=== PATIENT | female | born 1990 | race Caucasian/White ===

== ENCOUNTER → 2017-12-03 14:37 | Outpatient (CLI) | payer MEDICAID, SELFPAY ==
[2017-12-03 16:49] LABS: Pregnancy, Serum, hCG Quali. NEGATIVE Negative (0-9 Nonpreg)
[2017-12-03 16:53] LABS: Follicle Stimulating Hormone 4.9 mIU/mL; Free T3 2.9 pg/mL (2.18-3.98); Luteinizing Hormone 10.5 mIU/mL; Prolactin 12.1 ng/mL; T4 Free Direct 0.98 ng/dL (0.76-1.46); Thyroid Stim Hormone (TSH) 1.24 uIU/mL (0.358-3.74)
[2017-12-03 17:58] LABS: Chlamydia Trachomatis by PCR Negative (Negative); Neisserai gonorrhoeae by PCR Negative (Negative); Probe Check PASS; Sample Adequacy Control PASS; Specimen Processing Control PASS
[2017-12-04 09:37] LABS: HIV - WCH Non-Reactive (Nonreactive)
[2017-12-05 13:09] LABS: HEPATITIS B SURFACE AG Negative (Negative)
[2017-12-05 13:11] LABS: Hep C Antibodies >11.0 s/co ratio (0.0-0.9)
[2017-12-06 03:48] LABS: Rapid Plasmin Reagin (RPR) NONREACTIVE (NONREACTIVE)
[2017-12-07 10:55] LABS: HPV Reflexed? NOT INDICATED
== END ==
PROVIDERS: Visit Provider Obstetrics & Gynecology
DX: Z11.3 Encounter for screening for infections with a predominantly sexual mode of transmission (principal); Z12.4 Encounter for screening for malignant neoplasm of cervix; N91.1 Secondary amenorrhea
CPT/HCPCS: 36415; 83001; 83002; 83036; 84146; 84439; 84443; 84481; 84703; 86592; 86703; 86803; 87340; 87491; 87591; 88175; G0145

== ENCOUNTER → 2017-12-18 14:54 | Outpatient (CLI) | payer MEDICAID, SELFPAY ==
[2017-12-18 16:13] LABS: AST(SGOT) 25 U/L (15-37); Alanine Aminotransfer ALT/SGPT 32 U/L (13-56); Alkaline Phosphatase 101 U/L (45-117); Bilirubin, Direct < 0.05 mg/dL (0.00-0.30); Globulin 4.7 g/dL (2.2-4.2); Protein, Total 8.7 g/dL (6.4-8.2)
[2017-12-21 03:07] LABS: HCV Quant. RNA PCR HCV Not Detected IU/mL (.)
== END ==
PROVIDERS: Visit Provider Obstetrics & Gynecology
DX: B18.2 Chronic viral hepatitis C (principal)
CPT/HCPCS: 36415; 80076; 87522

== ENCOUNTER → 2018-01-07 11:47 | Outpatient (CLI) | payer MEDICAID, SELFPAY ==
[2018-01-07 12:39] LABS: Pregnancy, Serum, hCG Quali. NEGATIVE Negative (0-9 Nonpreg)
== END ==
PROVIDERS: Visit Provider Obstetrics & Gynecology
DX: N91.2 Amenorrhea, unspecified (principal)
CPT/HCPCS: 36415; 84703

== ENCOUNTER → 2018-12-30 13:14 | Outpatient (CLI) | payer MEDICAID, SELFPAY ==
[2018-12-30 14:11] LABS: hCG Titer Quant., Serum < 1 mIU/mL (<9 non-preg)
== END ==
PROVIDERS: Referring Provider Obstetrics & Gynecology; Visit Provider Obstetrics & Gynecology
DX: N91.2 Amenorrhea, unspecified (principal)
CPT/HCPCS: 36415; 84702

== ENCOUNTER → 2019-04-17 16:06 | Outpatient (CLI) | payer MEDICAID, SELFPAY ==
[2019-04-17 18:33] LABS: Chlamydia Trachomatis by PCR Negative (Negative); Neisserai gonorrhoeae by PCR Negative (Negative)
[2019-04-17 18:34] LABS: Probe Check PASS; Sample Adequacy Control PASS; Specimen Processing Control PASS
[2019-05-06 17:30] LABS: HPV HC, High Risk Negative (Negative)
[2019-05-10 14:38] LABS: HPV Reflexed? YES, CHARGE PATIENT
== END ==
PROVIDERS: Visit Provider Obstetrics & Gynecology
DX: Z12.4 Encounter for screening for malignant neoplasm of cervix (principal); Z11.3 Encounter for screening for infections with a predominantly sexual mode of transmission
CPT/HCPCS: 87491; 87591; 87624; 88175; G0145

== ENCOUNTER → 2019-05-04 14:26 | Outpatient (CLI) | payer MEDICAID, SELFPAY ==
[2019-05-04 16:27] LABS: Absolute Lymphocyte Count 1.57 X10^3/ul (0.83-4.51); Absolute Neutrophil Count 2.8 X10^3/uL (2.0-7.7); Basophil# 0.01 X10^3/uL; Basophil% 0.2 % (0-1); Eosinophil# 0.07 X10^3/uL; Eosinophils% 1.4 % (0-5); Hematocrit 37.8 % (37-47); Hemoglobin 13.1 g/dl (12.0-15.0); Lymphocyte # 1.57 X10^3/ul (4.0); Mean Corp Hgb Conc 34.7 g/gl (32-36); Mean Corpuscular Hgb 29.1 pg (27.0-32.0); Mean Platelet Vol. 9.6 fl (6.2-12.0); Monocyte# 0.45 X10^3/uL; Monocyte% 9.2 % (0-10); Platelet Count 179 K/mm3 (150-450); RBC Distribution Width CV 12.4 % (11.6-14.6); RBC Distribution Width SD 37.5 fl (35.1-43.9); White Blood Count 4.9 K/mm3 (4.4-11.0)
[2019-05-04 16:28] LABS: POSITIVE COUNT NO; POSITIVE DIFFERENTIAL NO; POSITIVE MORPHOLOGY NO
[2019-05-04 17:06] LABS: Color, Urine Yellow (Yellow); Glucose, Dipstick Normal (Normal); Ketone-Dipstick Negative (Negative); Leukocyte Esterase-Dipstick 25 /ul (Negative); Nitrite-Dipstick Negative (Negative); Occult Blood-Urine Negative /ul (Negative); Protein-Dipstick Negative (Negative); Specific Gravity, Urine 1.015 (1.002-1.030); Urine Bilirubin Dipstick Negative (Negative); Urine Clarity Cloudy (Clear); Urine Urobilinogen Normal (Normal)
[2019-05-04 17:29] LABS: BUP Internal Control LINE = VALID (VALID); Buprenorphine Drug Screen Positive (<10 ng/mL)
[2019-05-04 17:34] LABS: Amphetamine Urine VISTA NEGATIVE (<1000 ng/mL); Barbiturate Urine VISTA NEGATIVE (< 200 ng/mL); Benzodiazepine Urine VISTA NEGATIVE (< 200 ng/mL); Cocaine Urine VISTA NEGATIVE (< 300 ng/mL); Ecstacy Urine VISTA NEGATIVE (< 500 ng/mL); Methadone Urine VISTA NEGATIVE (< 300 ng/mL); PCP Urine VISTA NEGATIVE (< 25 ng/mL); THC Urine VISTA POSITIVE (< 50 ng/mL); Vista UDS pH Range 7
[2019-05-05 10:54] LABS: HIV - WCH Non-Reactive (Nonreactive); Hepatitis B Surface Antigen Non-Reactive (Nonreactive); Rubella IgG 14.7 IU/mL
[2019-05-05 10:57] LABS: Hepatitis C Antibody Reactive (Nonreactive)
[2019-05-08 02:57] LABS: Prenatal RPR NONREACTIVE (NONREACTIVE)
[2019-05-09 00:12] LABS: HCV Quant. RNA PCR HCV Not Detected IU/mL (.)
== END ==
PROVIDERS: PCP Obstetrics & Gynecology; Visit Provider Obstetrics & Gynecology
DX: Z34.81 Encounter for supervision of other normal pregnancy, first trimester (principal)
CPT/HCPCS: 36415; 80307; 81002; 84443; 85025; 86703; 86762; 86803; 87340; 87522

== ENCOUNTER → 2019-09-02 13:42 | Outpatient (CLI) | payer MEDICAID, SELFPAY ==
[2019-09-02 16:10] LABS: Hematocrit 33.8 % (37-47); Hemoglobin 11.6 g/dL (12.0-15.0); Mean Corp Hgb Conc 34.3 g/dL (32-36); Mean Corpuscular Hgb 30.9 pg (27.0-32.0); Mean Corpuscular Volume 89.9 fL (81-99); Mean Platelet Vol. 9.2 fl (6.2-12.0); Platelet Count 172 K/mm3 (150-450); RBC Distribution Width CV 12.1 % (11.6-14.6); RBC Distribution Width SD 39.6 fl (35.1-43.9); Red Blood Count 3.76 M/mm3 (4.2-5.4); White Blood Count 6.8 K/mm3 (4.4-11.0)
[2019-09-02 16:20] LABS: Glucose Challenge Gest 1H 50g 72 mg/dL (70-140)
== END ==
LOC: LABSPEC 13:43 → WOBLAB 13:45
PROVIDERS: Visit Provider Advanced Practice Midwife
DX: Z34.82 Encounter for supervision of other normal pregnancy, second trimester (principal)
CPT/HCPCS: 36415; 82950; 85027

== ENCOUNTER → 2019-09-21 15:04 | Outpatient (CLI) | payer MEDICAID, SELFPAY ==
[2019-09-23 20:07] LABS: HCV Quant. RNA PCR HCV Not Detected IU/mL (.)
== END ==
PROVIDERS: Visit Provider Obstetrics & Gynecology
DX: O98.413 Viral hepatitis complicating pregnancy, third trimester (principal); B18.2 Chronic viral hepatitis C; Z3A.00 Weeks of gestation of pregnancy not specified
CPT/HCPCS: 36415; 87522

== ENCOUNTER → 2019-11-05 15:57 | Outpatient (CLI) | payer MEDICAID, SELFPAY | PROVIDERS: Visit Provider Obstetrics & Gynecology | DX: Z36.85 Encounter for antenatal screening for Streptococcus B (principal) | CPT/HCPCS: 87081 ==

== ENCOUNTER 2019-11-26 22:00 | Outpatient (CLI) | payer MEDICAID, SELFPAY ==
[2019-11-26 23:00] VITALS: BMI 24.9
--- NOTE | 2019-11-27 09:05 | OB.TRI.HP_ITS ---
- Problem List (1) Irregular contractions Status: Acute History of Present Illness Date of Service: 11/26/19 Was patient seen by the physician?: No Reason For Visit: RULE OUT LABOR Date of Service: 11/26/19 Final ARVIND: 11/29/19 Final ARVIND Source: US <20 weeks Gestational age: 39 Weeks and 5 Days Allergies No Known Allergies Allergy (Verified 11/26/19 23:00) Review of Systems Constitutional: Denies: Chills, Fever, Weight Change HEENT: Denies: Head Aches, Sinus Congestion, Sinus Drainage Cardiovascular: Denies: Chest Pain, Palpitations Respiratory: Denies: Cough, Shortness of breath at rest, Sputum production Gastrointestinal: Reports: Abdominal Pain - irregular contractions. Denies: Nausea, Vomiting Genitourinary: Denies: Dysuria Musculoskeletal: Denies: Joint Pain, Joint Tenderness Skin: Denies: Rash, Wounds Neurological: Denies: Numbness, Tingling, Focal weakness Psychiatric: Denies: Anxiety, Depression, Homicidal Ideations, Suicidal Ideations Hematologic/ Lymphatic: Denies: Easy Bruising, Easy Bleeding Physical Exam General: Alert, Oriented x3, No apparent distress HEENT: Atraumatic, Normocephalic. Negative for: Thyromegaly, Lymphadenopathy Cardiovascular: Regular rate, Regular Rhythm Lungs: Clear to auscultation Abdomen: Bowel Sounds Present, Gravid Neurological: Deep Tendon Reflexes 2+/4 and Symmetrical, Neuro grossly intact NURSERY MANAGER: Normal external genitalia. Negative for: Vulvar lesions Estimated gestational size: Appropriate for gestational size Presentation: Cephalic Cervix Dilation (cm): 1 - per RN Station: -3 Effacement (%): 25 NST - FHR Rate Baby A Baseline: 125 Variability:: Moderate Accelerations:: 15 x 15 Decelerations:: None NST Reactive:: Yes FHR Category:: Category I Uterine Activity:: 2-4 minutes on admission for 20 minutes, then quiet Impression/Plan A: SVE unchanged after 2 hours UC stopped after arrival to unit NST category I tracing P: Discharge home to await onset of labor Education to rest and hydrate. To call when UC are Q5 minutes apart for at least one hour
== END 2019-11-27 01:00 | disposition home or self-care (01) ==
LOC: WPOUT 22:38 → WP 22:40
PROVIDERS: Visit Provider Obstetrics & Gynecology
DX: O26.893 Other specified pregnancy related conditions, third trimester (principal); N85.8 Other specified noninflammatory disorders of uterus; Z3A.39 39 weeks gestation of pregnancy
CPT/HCPCS: 59025; 59050; 99218; G0378

== ENCOUNTER 2019-12-01 14:10 | Inpatient (IN) | payer MEDICAID, SELFPAY ==
[2019-12-01 14:22] VITALS: BMI 26.7
[2019-12-01] MEDS: Lactated Ringers 1,000 ML 50 ML IV (14:35)
[2019-12-01 15:06] LABS: Absolute Lymphocyte Count 1.64 X10^3/uL (0.83-4.51); Absolute Neutrophil Count 5.2 X10^3/uL (2.0-7.7); Basophil# 0.03 X10^3/uL; Basophil% 0.4 % (0-1); Eosinophils% 1.3 % (0-5); Hematocrit 34.1 % (37-47); Hemoglobin 11.5 g/dL (12.0-15.0); Lymphocyte # 1.64 X10^3/ul (4.0); Lymphocyte % 21.3 % (19-41); Mean Corp Hgb Conc 33.7 g/dL (32-36); Mean Corpuscular Hgb 29.4 pg (27.0-32.0); Mean Corpuscular Volume 87.2 fL (81-99); Mean Platelet Vol. 9.4 fl (6.2-12.0); Monocyte# 0.61 X10^3/uL; Monocyte% 7.9 % (0-10); NRBC Flagged by Analyzer 0 % (0-5); Neutrophil # 5.24 X10^3/uL (2.7-7.7); Neutrophil % 68.2 % (47-70); Platelet Count 182 K/mm3 (150-450); RBC Distribution Width CV 11.9 % (11.6-14.6); RBC Distribution Width SD 38.1 fl (35.1-43.9); Red Blood Count 3.91 M/mm3 (4.2-5.4); White Blood Count 7.7 K/mm3 (4.4-11.0)
[2019-12-01] MEDS: Oxytocin 30 units/NS 500 ml 30 UNITS/500 ML IV.SOLN IV (15:51)
[2019-12-01] MEDS: Lactated Ringers 500 ML 999 ML IV ×2 (16:48→18:49)
[2019-12-01 17:09] LABS: Amphetamine Urine VISTA NEGATIVE (<1000 ng/mL); Barbiturate Urine VISTA NEGATIVE (< 200 ng/mL); Benzodiazepine Urine VISTA NEGATIVE (< 200 ng/mL); Cocaine Urine VISTA NEGATIVE (< 300 ng/mL); Ecstacy Urine VISTA NEGATIVE (< 500 ng/mL); Methadone Urine VISTA NEGATIVE (< 300 ng/mL); PCP Urine VISTA NEGATIVE (< 25 ng/mL); THC Urine VISTA NEGATIVE (< 50 ng/mL); Vista UDS pH Range 6
[2019-12-01] MEDS: fentaNYL-bupivacaine (epidural) 100 ML BAG EPIDURAL ×2 (18:05→22:26)
--- NOTE | 2019-12-01 19:13 | PCM.HP.OB ---
- Problem List (1) 40 weeks gestation of Status: Acute (2) Elective induction of labor planned Status: Acute History Date of Admission: 12/01/19 Final ARVIND: 11/29/19 Final ARVIND Source: US <20 weeks Gestational age: 40 Weeks and 2 Days History of this : This is a 29 year-old, G [], P [], at 40 weeks gestational age. Allergies No Known Allergies Allergy (Verified 12/01/19 14:23) Home Medications: Home Medications Buprenorphine HCl/Naloxone HCl [Suboxone 4 mg-1 mg Sl Film] 1 ea SL 11/26/19 Ondansetron HCl [Zofran] 4 mg PO 11/26/19 Vits [Prenatabs FA] 1 tab PO DAILY 12/01/19 Smoking Status: Light Smoker (<10/day) Number of Fetus(es): 1 NST - FHR Rate Baby A Baseline: 140 Variability:: Moderate Accelerations:: 15 x 15 Decelerations:: None NST Reactive:: Yes FHR Category:: Category I Uterine Activity:: Q 2-4 minutes History Past Pregnancies: Past Pregnancies Delivery Date Name GA/ Weeks Outcome Route Wt Sex Labor Length Anesthesia Delivery Location Provider FOB Labs: Mom's Labs & Results 12/01/19 12/01/19 12/01/19 14:35 14:35 15:30 WBC 7.7 RBC 3.91 L Hgb 11.5 L Hct 34.1 L MCV 87.2 MCH 29.4 MCHC 33.7 RDW Std Deviation 38.1 RDW Coeff of Gabby 11.9 Plt Count 182 MPV 9.4 Immature Gran % (Auto) 0.900 Neut % (Auto) 68.2 Lymph % (Auto) 21.3 [place] % (Auto) 7.9 Eos % (Auto) 1.3 Baso % (Auto) 0.4 Absolute Neuts (auto) 5.2 Absolute Lymphs (auto) 1.64 Nucleated RBC % 0 Urine Opiates Screen NEGATIVE Urine Methadone Screen NEGATIVE Ur Barbiturates Screen NEGATIVE Ur Phencyclidine Scrn NEGATIVE Ur Amphetamines Screen NEGATIVE U Methamphetamin-MDMA NEGATIVE U Benzodiazepines Scrn NEGATIVE Urine Cocaine Screen NEGATIVE U Cannabinoids Screen NEGATIVE Ur Drug Screen Comment Blood Type A POSITIVE Antibody Screen NEGATIVE Course Did the patient receive Yes care? Labs Blood Type: A RH: POSITIVE RPR/VDRL/Syphilis Nonreactive Rubella status Immune HbSAg Negative Date Done: 05/04/19 Chlamydia Negative Gonorrhea Negative HIV/AIDS Non-Reactive Group B Strep: Negative Current Obstetrical History Gestational Diabetes No Incompetent Cervix No Infertility No IUGR No Macrosomia No Hypertension/Pre-eclampsia No Placenta Previa/Abruption No PTL/PROM No Uterine anomaly No Oligohydramnios No Polyhydramnios No Multiple gestation No Past Medical History Asthma No Diabetes No Hypertension No Heart disease No Mitral valve prolapse No Neurologic/Seizure disorder/ No Migraines Kidney disease No Liver disease No Varicosities No Clotting disorders/Hx of DVT No Thyroid Dysfunction No Other medical diseases No Psychiatric disorders No Major trauma No Abnormal PAP smear No Sleep apnea No Mammogram in the last 2 years No Social History Marital Status: SINGLE Alleged father Rakan Smoking Status Light Smoker (<10/day) How long have you used pt on subutex since less than a year but substances (years)? throughout the entire . pt using CBD oil first two months of for nausea. Expected Delivery Method: Spontaneous Vaginal Number of Visits: 13 Review of Systems Constitutional: Denies: Chills, Fever, Weight Change HEENT: Denies: Head Aches, Sinus Congestion, Sinus Drainage Cardiovascular: Denies: Chest Pain, Palpitations Respiratory: Denies: Cough, Shortness of breath at rest, Sputum production Gastrointestinal: Denies: Abdominal Pain, Nausea, Vomiting Genitourinary: Denies: Dysuria Musculoskeletal: Denies: Joint Pain, Joint Tenderness Skin: Denies: Rash, Wounds Neurological: Denies: Numbness, Tingling, Focal weakness Psychiatric: Denies: Anxiety, Depression, Homicidal Ideations, Suicidal Ideations Hematologic/ Lymphatic: Denies: Easy Bruising, Easy Bleeding Physical Exam General: Alert, Oriented x3, No apparent distress HEENT: Atraumatic, Normocephalic. Negative for: Thyromegaly, Lymphadenopathy Cardiovascular: Regular rate, Regular Rhythm Lungs: Clear to auscultation Abdomen: Bowel Sounds Present, Gravid Neurological: Deep Tendon Reflexes 2+/4 and Symmetrical, Neuro grossly intact CASTING OPERATOR: Normal external genitalia. Negative for: Vulvar lesions Estimated gestational size: Appropriate for gestational size Presentation: Cephalic Cervix Dilation (cm): 2 Station: -2 Effacement (%): 50 Assessment/Plan All Active Problems Irregular contractions (Acute) 40 weeks gestation of (Acute) Elective induction of labor planned (Acute) A: This is a 29 year-old, G [3], P [1], at 40 weeks gestational age. Elective induction of labor SVE /-[id number] with meconium stained fluid Pitocin at [address]u [address] P: Continue with Pitocin induction SVE Q6H or as needed Education on meconium stained fluid and need for marketing program coordinator, nurse and respiratory at delivery
[2019-12-01] MEDS: Ondansetron 4 MG/2 ML Vial IV (21:37)
[2019-12-01] MEDS: 0.9% Saline Lock 10 ML Syringe IV (21:37)
[2019-12-01] MEDS: Lactated Ringers 1,000 ML 200 ML IV (22:26)
[2019-12-02] MEDS: fentaNYL-bupivacaine (epidural) 100 ML BAG EPIDURAL ×2 (02:45→07:36)
[2019-12-02] MEDS: Lactated Ringers 1,000 ML 200 ML IV (03:56)
[2019-12-02] MEDS: Lactated Ringers 500 ML 999 ML IV (05:15)
--- NOTE | 2019-12-02 07:26 | PCM.PN.OB ---
Patient Problems: Active and Suspected Problems 40 weeks gestation of (Acute) Elective induction of labor planned (Acute) Subjective: Currently sleeping. Report from RN, patient feeling well with epidural and pain 0/10. Objective: VSS. RN SVE 6/80/-1 at 0607. FHR baseline 135, +accels, -decels, moderate variability. UC 2-4 min. - Physical Exam Vitals/I&O's: Weight: 70.7 kg Body Mass Index (BMI) 26.7 Intake and Output for Last 24 Hours 11/30/19 12/01/19 12/02/19 23:59 23:59 23:59 Intake Total 2101.93 / 2101.93 1845.40 / 1845.40 Output Total 400 / 400 700 / 700 Balance 1701.93 / 1701.93 1145.40 / 1145.40 General: Alert, Oriented x3, Cooperative HEENT: Atraumatic, PERRLA, EOMI, Normocephalic Neck: Supple, No JVD, Negative Carotid Bruits Lungs: Clear to auscultation, Normal air movement Cardiovascular: Regular rate, No murmurs Abdomen: Bowel Sounds Present, Soft, Non Tender, Gravid Extremities: No edema, Capillary Refill Less than 3 Seconds Skin: No rashes, No breakdown Musculoskeletal: No Tenderness to Palpation of Joints or Extremities Neurological: Cranial nerves II-XII grossly intact Psych/Mental Status: Normal Affect, Appropriate Laboratory Results 12/01/19 14:35: WBC 7.7, RBC 3.91 L, Hgb 11.5 L, Hct 34.1 L, MCV 87.2, MCH 29.4, MCHC 33.7, RDW Std Deviation 38.1, RDW Coeff of Gabby 11.9, Plt Count 182, MPV 9.4, Immature Gran % (Auto) 0.900, Neut % (Auto) 68.2, Lymph % (Auto) 21.3, [place] % (Auto) 7.9, Eos % (Auto) 1.3, Baso % (Auto) 0.4, Absolute Neuts (auto) 5.2, Absolute Lymphs (auto) 1.64, Nucleated RBC % 0 12/01/19 14:35: Blood Type A POSITIVE, Antibody Screen NEGATIVE 12/01/19 15:30: Urine Opiates Screen NEGATIVE, Urine Methadone Screen NEGATIVE, Ur Barbiturates Screen NEGATIVE, Ur Phencyclidine Scrn NEGATIVE, Ur Amphetamines Screen NEGATIVE, U Methamphetamin-MDMA NEGATIVE, U Benzodiazepines Scrn NEGATIVE, Urine Cocaine Screen NEGATIVE, U Cannabinoids Screen NEGATIVE, Ur Drug Screen Comment Current Medications Acetaminophen (Tylenol) 325 - 650 mg PO Q4H PRN PRN PRN Reason: Pain Score 1-3/10 Al Hydroxide/Mg Hydroxide (Mylanta Ii) 15 - 30 ml PO Q4H PRN PRN PRN Reason: INDIGESTION Citric Acid/Sodium Citrate (Bicitra) 30 ml PO X1 PRN PRN Reason: Section Ephedrine Sulfate () 10 mg IV Q10M PRN PRN Reason: hypotension Ephedrine Sulfate () 10 mg IM Q30M PRN PRN Reason: hypotension Fentanyl Citrate (Sublimaze (100mcg Ampule)) 25 - 50 mcg IV Q2H PRN PRN PRN Reason: Pain Score 4-10/10 Fentanyl/Bupivacaine/Sodium Chlor () 0 ml EPIDURAL UD [facility]; Protocol Last Admin: 12/02/19 02:45 Dose: 100 ml Documented by: Lactated Ringer's () 500 mls @ 999 mls/hr IV .Q31M PRN PRN Reason: Epidural Last Infusion: 12/01/19 17:20 Dose: Infused Documented by: Lactated Ringer's () 500 mls @ 999 mls/hr IV .Q31M PRN PRN Reason: Corrective Measures Last Infusion: 12/02/19 05:46 Dose: Infused Documented by: Lactated Ringer's () 1,000 mls @ 50 mls/hr IV .Q20H [facility] Last Infusion: 12/02/19 05:46 Dose: 200 mls/hr Documented by: Oxytocin/Sodium Chloride () 30 units in 500 mls @ 2 mls/hr IV .Q250H [facility] Last Infusion: 12/02/19 00:50 Dose: 6 mls/hr Documented by: Naloxone HCl 4 mg/ Dextrose 504 mls @ 0 mls/hr IV .Q0M PRN; Protocol PRN Reason: To maintain Resp. rate >10 Nalbuphine HCl (Nubain) 5 mg IV Q3H PRN PRN PRN Reason: ITCHING Naloxone HCl (Narcan) 0.02 mg IV Q1M PRN PRN Reason: RR< 10 AND PT UNRESPONSIVE Ondansetron HCl (Zofran) 4 mg IV Q4H PRN PRN PRN Reason: NAUSEA Last Admin: 12/01/19 21:37 Dose: 4 mg Documented by: Prochlorperazine Edisylate (Compazine Iv) 10 mg IV Q6H PRN PRN PRN Reason: NAUSEA Sodium Chloride () 10 - 40 ml IV X1 PRN PRN Reason: SALINE FLUSH Last Admin: 12/01/19 21:37 Dose: 10 ml Documented by: Medical Necessity - Tobacco Use Smoking Status: Light Smoker (<10/day) Assessment/Plan All Active Problems Irregular contractions (Acute) 40 weeks gestation of (Acute) Elective induction of labor planned (Acute) A: Active labor with Pitocin induction VSS. Afebrile. SVE 6/80/-1 UC Q2-4 minutes palpating strong Category 1 reactive NST P: Continue with IOL via Pitocin Expect Continuous monitoring
[2019-12-02] MEDS: Ondansetron 4 MG/2 ML Vial IV (07:54)
[2019-12-02] MEDS: Oxytocin 30 units/NS 500 ml 30 UNITS/500 ML IV.SOLN 334 UNITS IV (10:29)
[2019-12-02 10:48] LABS: BUP Internal Control LINE = VALID (VALID); Buprenorphine Drug Screen Positive (<10 ng/mL)
--- NOTE | 2019-12-02 10:54 | OP.PCM_ITS ---
Problem List (1) 40 weeks gestation of Status: Acute (2) Elective induction of labor planned Status: Acute Vaginal Delivery Maternal Presentation: Elective Induction Method of Induction: Pitocin, Amniotomy Amniotic Membrane Rupture Type: Artificial Rupture of Membrane time: 1849 Amniotic Fluid Description: Moderate meconium Final ARVIND: 11/29/19 Gestational age: 40 Weeks and 3 Days Date of Procedure: 12/02/19 Pre-Operative Diagnosis: 40 weeks gestation, induction of labor Post-Operative Diagnosis: S/P Surgery/ Procedure Performed: Spontaneous Vaginal Delivery Type of Anesthesia: Epidural Description of Procedure: Patient was FD/+3 station and pushed to deliver a viable female in OA to ENRIQUETA over an intact perineum. The was placed on the maternal abdomen and further attended by nursery personnel. Bulb suction and gentle stimulation given, with spontaneous cries. The cord was doubly clamped by CNM and cut at ap proximately 1 minute by paternal grandmother. The placenta delivered spontaneous after 5 minutes and one push. It appeared intact on inspection with a 3 vessel cord. Intrauterine exam and retrieval of small clots. The fundus firmed and good hemostasis. EBL 150. Upon inspection bilateral labial skid johnson noted with moderate edema and bruising. No repairs needed. apgars 8/9. Presentation: Vertex, ENRIQUETA Placental Delivery Description: Spontaneous Placenta Disposition: [facility] Cord Vessel Description: 3 Vessels Cord Entanglement: None Estimated Blood Loss: 150 Infant A gender: Female (1 minute): 8 (5 minute): 9 Episiotomy Description: None Laceration: None - Skin johnson to bilateral labias Medications given after delivery: IV Pitocin
--- NOTE | 2019-12-02 11:03 | DCINST_ITS ---
<Jade Swain - Last Filed: 12/02/19 11:03> Discharge Diet: No Restrictions Discharge Activity: Return to Normal Activity, May not drive while taking narcotic pain medications., May Shower May resume sexual activity in: - - One week after cessation of bleeding Additional Activity Instructions:: You may return to work/school in 6 weeks. Call your doctor if your incision/area has: Continuous Slow Oozing, Sudden Increased Bleeding, Increased Pain/ Swelling, Increased Redness, Foul Smelling Discharge Call your doctor if you observe: Fever of 101 or Higher Instructions: After a Vaginal , Nutrition While , Understanding Depression, at Home Additional Instructions: If you experience any of the following, contact your healthcare provider. * Bleeding that soaks a pad every hour for 2 hours * Fever 100.4 or higher * Unrelieved incision or abdominal pain * Swelling, redness, discharge or bleeding from your incision or episiotomy site * Your incision begins to separate * Problems urinating (including inability to urinate or burning while urinating). * Visual changes * Severe headache * Flu-like symptoms * Pain or redness in one of both of your breasts * Pain, warmth, tenderness or swelling in your legs, especially the calf area * Frequent nausea and vomiting * Symptoms of depression or anxiety If you experience any of the following, call 911 or go to the nearest Emergency Room. * Chest pain * Problems breathing * Seizure activity * Partial or complete paralysis of a body part, slurred speech, weakness or drooping of the face, or a sudden inability to walk or hold your balance Allergies/Adverse Reactions: Allergies No Known Allergies Allergy (Verified 12/01/19 14:23) Medications to take at Discharge Buprenorphine HCl/Naloxone HCl [Suboxone 4 mg-1 mg Sl Film] 1 ea SL 11/26/19 Ondansetron HCl [Zofran] 4 mg PO 11/26/19 Vits [Prenatabs FA] 1 tab PO DAILY 12/01/19 Please Follow Up With: Jade Swain CNM When: Call to make an appointment with your CNM in 2 weeks. Primary Care Physician: Care Physician,No Primary [Primary Care Provider] - Test Results: Test results from this visit will be discussed in further detail at your follow- up appointment, if applicable. <Anila Motley - Last Filed: 12/04/19 15:10> Additional Instructions: If you experience any of the following, contact your healthcare provider. * Bleeding that soaks a pad every hour for 2 hours * Fever 100.4 or higher * Unrelieved incision or abdominal pain * Swelling, redness, discharge or bleeding from your incision or episiotomy site * Your incision begins to separate * Problems urinating (including inability to urinate or burning while urinating). * Visual changes * Severe headache * Flu-like symptoms * Pain or redness in one of both of your breasts * Pain, warmth, tenderness or swelling in your legs, especially the calf area * Frequent nausea and vomiting * Symptoms of depression or anxiety If you experience any of the following, call 911 or go to the nearest Emergency Room. * Chest pain * Problems breathing * Seizure activity * Partial or complete paralysis of a body part, slurred speech, weakness or drooping of the face, or a sudden inability to walk or hold your balance Test Results: Test results from this visit will be discussed in further detail at your follow- up appointment, if applicable.
[2019-12-02] MEDS: Ibuprofen 600 MG Tablet PO ×3 (12:08→23:45)
[2019-12-02] MEDS: 0.9% Saline Lock 10 ML Syringe IV (13:12)
--- NOTE | 2019-12-02 13:30 | NURSING ---
Lyons cath removed after 10 cc NS removed from lyons bulb
[2019-12-02 17:06] VITALS: BP 109/68; PULSE 100; RESP 16; TEMP 36.6
[2019-12-02] MEDS: Acetaminophen 500 MG Tablet 1000 MG PO (17:13)
[2019-12-02 17:27] VITALS: BP 171/81; PULSE 90; RESP 16; TEMP 36.6; O2SAT 96
[2019-12-02 17:32] VITALS: BP 161/78
[2019-12-02 19:57] VITALS: BP 102/72; PULSE 87; RESP 16; TEMP 36.7
[2019-12-02] MEDS: Senna/Docusate Sodium 1 Tablet PO (20:35)
[2019-12-02 23:32] VITALS: BP 108/66; PULSE 85; RESP 16; TEMP 36.7
[2019-12-03 01:55] VITALS: BP 92/57; PULSE 72; RESP 14; TEMP 36.3
[2019-12-03] MEDS: Ibuprofen 600 MG Tablet PO ×3 (06:26→22:56)
[2019-12-03] MEDS: Acetaminophen 500 MG Tablet 1000 MG PO ×2 (07:49→16:01)
[2019-12-03] MEDS: Senna/Docusate Sodium 1 Tablet PO (07:55)
[2019-12-03 08:15] VITALS: BP 103/55; PULSE 68; RESP 16; TEMP 36.4
[2019-12-03] MEDS: Buprenorphine HCl 2 MG TAB.SUBL 4 MG SL (10:24)
--- NOTE | 2019-12-03 10:41 | NURSING ---
Pt states nausea this am and takes zofran 4 mg po QAM at home and requesting that while she is here but not ordered so nurse, Michaela called at [facility] for an order. SUZANNA Masters pricing consultant and she will have her call back with orders.
[2019-12-03 14:00] VITALS: BP 93/60; PULSE 72; RESP 16; TEMP 36.2
--- NOTE | 2019-12-03 14:24 | PCM.PN.OB ---
Patient Problems: Active and Suspected Problems 40 weeks gestation of (Acute) Elective induction of labor planned (Acute) Subjective: This note is for today at 0800 Pain well controlled, tolerating diet, passing flatus; progressing slowly, to see patient; plans to stay tonight and be discharged tomorrow Objective: AVSS Nipples mildly excoriated Fundus firm, midline, u/1, lochia small Perineum atraumatic - Physical Exam Vitals/I&O's: Vital Signs Temp Pulse Resp BP Pulse Ox 97.1 F L 72 16 93/60 96 12/03/19 14:00 12/03/19 14:00 12/03/19 14:00 12/03/19 14:00 12/02/19 17:27 Oxygen Delivery Method Room Air Weight: 155 lb 13.869 oz Body Mass Index (BMI) 26.7 Intake and Output for Last 24 Hours 12/01/19 12/02/19 12/03/19 23:59 23:59 23:59 Intake Total 2101.93 / 2101.93 3138.47 / 3138.47 Output Total 400 / 400 2300 / 2300 Balance 1701.93 / 1701.93 838.47 / 838.47 General: Alert, Oriented x3, Cooperative, No apparent distress HEENT: PERRLA, EOMI Oral: Moist Mucosa Neck: Supple Lungs: Clear to auscultation, Normal air movement Cardiovascular: Regular rate, Regular Rhythm Abdomen: Bowel Sounds Present, Soft, Non Tender, Non-Distended, Passing Flatus Extremities: Capillary Refill Less than 3 Seconds, No Calf Tenderness, Edema - 1+ pitting bilateral lower extremities Musculoskeletal: No Tenderness to Palpation of Joints or Extremities Lymphatic: No Cervical, Supraclavicular, or Inguinal Adenopathy Neurological: Cranial nerves II-XII grossly intact, Deep Tendon Reflexes 2+/4 and Symmetrical, Neuro grossly intact Psych/Mental Status: Normal Affect, Appropriate Current Medications Acetaminophen (Tylenol) 1,000 mg PO Q8H PRN PRN PRN Reason: Pain Score 1-3/10 Last Admin: 12/03/19 07:49 Dose: 1,000 mg Documented by: Bisacodyl (Dulcolax) 10 mg RECTAL UD PRN PRN Reason: If no BM Buprenorphine HCl (Buprenorphine Hcl) 4 mg QAM [facility] Last Admin: 12/03/19 10:24 Dose: 4 mg Documented by: Buprenorphine HCl (Buprenorphine Hcl) 4 mg SL QHS PRN PRN Reason: ANXIETY/AGITATION Dibucaine (Dibucaine) 1 applic TOPICAL TID PRN PRN; Protocol PRN Reason: Discomfort Hydrocortisone (Hytone) 1 applic TOPICAL TID PRN PRN; Protocol PRN Reason: Discomfort Ibuprofen (Motrin) 600 mg PO Q6 [facility] Last Admin: 12/03/19 14:00 Dose: 600 mg Documented by: Methylergonovine Maleate (Methergine) 0.2 mg IM X1 PRN PRN Reason: Excess bleeding/uterine atony Ondansetron HCl (Zofran) 8 mg PO Q8H PRN PRN PRN Reason: NAUSEA Senna/Docusate Sodium (Senokot-S, Afua-Colace) 1 - 2 tablet PO DAILY PRN PRN PRN Reason: Constipation Last Admin: 12/03/19 07:55 Dose: 1 tablet Documented by: Simethicone (Mylicon) 80 mg PO [facility] PRN PRN Reason: Indigestion/Stomach pain Medical Necessity - Tobacco Use Smoking Status: Light Smoker (<10/day) Assessment/Plan All Active Problems Irregular contractions (Acute) 40 weeks gestation of (Acute) Elective induction of labor planned (Acute) A: 29yo G3 now P2012 delivered via at 40w3d gestation PP day #1, normal involution, normal course 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
[2019-12-03 20:03] VITALS: BP 107/72; PULSE 84; RESP 14; TEMP 36.8
[2019-12-04 02:00] VITALS: BP 95/53; PULSE 79; RESP 16; TEMP 36.4
[2019-12-04] MEDS: Ibuprofen 600 MG Tablet PO ×3 (05:33→17:32)
[2019-12-04 07:45] VITALS: BP 103/74; PULSE 79; RESP 12; TEMP 36.3
[2019-12-04] MEDS: Buprenorphine HCl 2 MG TAB.SUBL 4 MG SL (09:57)
[2019-12-04 11:16] VITALS: BP 103/65; PULSE 72; RESP 16; TEMP 36.3
[2019-12-04] MEDS: Ondansetron ODT 4 MG Tablet PO (11:58)
[2019-12-04] MEDS: Senna/Docusate Sodium 1 Tablet PO (11:58)
--- NOTE | 2019-12-04 15:11 | PCM.PN.OB ---
Subjective: This note is for today at 0830 Pain well controlled, tolerating diet, passing flatus, well; desires discharge home today or to [facility] status if remains inpatient Objective: AVSS Nipples mildly excoriated Fundus firm, midline, u/1, lochia scant Perineum atraumatic - Physical Exam Vitals/I&O's: Vital Signs Temp Pulse Resp BP Pulse Ox 97.3 F L 72 16 103/65 96 12/04/19 11:16 12/04/19 11:16 12/04/19 11:16 12/04/19 11:16 12/02/19 17:27 Oxygen Delivery Method Room Air Weight: 155 lb 13.869 oz Body Mass Index (BMI) 26.7 Intake and Output for Last 24 Hours 12/02/19 12/03/19 12/04/19 23:59 23:59 23:59 Intake Total 3138.47 / 3138.47 Output Total 2300 / 2300 Balance 838.47 / 838.47 General: Alert, Oriented x3, Cooperative, No apparent distress HEENT: PERRLA, EOMI Oral: Moist Mucosa Neck: Supple Lungs: Clear to auscultation, Normal air movement Cardiovascular: Regular rate, Regular Rhythm Abdomen: Bowel Sounds Present, Soft, Non Tender, Non-Distended, Passing Flatus Extremities: No edema, Capillary Refill Less than 3 Seconds, No Calf Tenderness, Edema - 1+ pitting bilateral lower extremities Musculoskeletal: No Tenderness to Palpation of Joints or Extremities Neurological: Cranial nerves II-XII grossly intact, Deep Tendon Reflexes 2+/4 and Symmetrical, Neuro grossly intact Psych/Mental Status: Normal Affect, Appropriate, Alert and oriented to time, place, person, mood and affect Current Medications Acetaminophen (Tylenol) 1,000 mg PO Q8H PRN PRN PRN Reason: Pain Score 1-3/10 Last Admin: 12/03/19 16:01 Dose: 1,000 mg Documented by: Bisacodyl (Dulcolax) 10 mg RECTAL UD PRN PRN Reason: If no BM Buprenorphine HCl (B[facility]ren[facility]ine Hcl) [facility] Last Admin: 12/04/19 09:57 Dose: 4 mg Documented by: Buprenorphine HCl (Buprenorphine Hcl) 4 mg SL QHS PRN PRN Reason: ANXIETY/AGITATION Dibucaine (Dibucaine) 1 applic TOPICAL TID PRN PRN; Protocol PRN Reason: Discomfort Hydrocortisone (Hytone) 1 applic TOPICAL TID PRN PRN; Protocol PRN Reason: Discomfort Ibuprofen (Motrin) 600 mg PO Q6 [facility] Last Admin: 12/04/19 11:14 Dose: 600 mg Documented by: Methylergonovine Maleate (Methergine) 0.2 mg IM X1 PRN PRN Reason: Excess bleeding/uterine atony Ondansetron HCl (Zofran Odt) 4 mg PO Q6H PRN PRN PRN Reason: NAUSEA/VOMITING Last Admin: 12/04/19 11:58 Dose: 4 mg Documented by: Senna/Docusate Sodium (Senokot-S, Afua-Colace) 1 - 2 tablet PO DAILY PRN PRN PRN Reason: Constipation Last Admin: 12/04/19 11:58 Dose: 1 tablet Documented by: Simethicone (Mylicon) 80 mg PO [facility] PRN PRN Reason: Indigestion/Stomach pain : Medical Necessity - Tobacco Use Smoking Status: Light Smoker (<10/day) Assessment/Plan All Active Problems Irregular contractions (Acute) 40 weeks gestation of (Acute) Elective induction of labor planned (Acute) A: 29yo G3 now P2012 delivered via at 40w3d gestation PP day #2, normal involution, normal course 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
[2019-12-04 15:15] VITALS: BP 84/57; PULSE 75; RESP 14; TEMP 36.4
[2019-12-04 18:49] VITALS: BP 102/63
== END 2019-12-04 18:50 | disposition home or self-care (01) | DRG 560 ==
PROVIDERS: Admitting Provider Obstetrics & Gynecology; Referring Provider Obstetrics & Gynecology; Visit Provider Obstetrics & Gynecology
DX: O48.0 Post-term pregnancy (principal); O77.0 Labor and delivery complicated by meconium in amniotic fluid; O99.334 Smoking (tobacco) complicating childbirth; F17.210 Nicotine dependence, cigarettes, uncomplicated; M41.9 Scoliosis, unspecified; Z37.0 Single live birth; Z3A.40 40 weeks gestation of pregnancy
CPT/HCPCS: 59025; 59050; 80307; 85025; 86850; 86900; 86901; 99218; J7120; A4216; G0378; J2405

== ENCOUNTER → 2020-09-28 15:34 | Outpatient (CLI) | payer MEDICAID, SELFPAY ==
[2020-10-01 03:07] LABS: Chlamydia By Nucleic Acid AMP Negative (Negative)
[2020-10-03 04:27] LABS: Gonococcus By Nucleic Acid AMP Negative (Negative)
== END ==
PROVIDERS: Visit Provider Obstetrics & Gynecology
DX: Z11.3 Encounter for screening for infections with a predominantly sexual mode of transmission (principal)
CPT/HCPCS: 87491; 87591

== ENCOUNTER → 2020-09-30 15:33 | Outpatient (CLI) | payer MEDICAID, SELFPAY ==
[2020-09-30 16:59] LABS: Absolute Lymphocyte Count 2.26 X10^3/uL (0.83-4.51); Absolute Neutrophil Count 2.7 X10^3/uL (2.0-7.7); Basophil# 0.03 X10^3/uL; Basophil% 0.5 % (0-1); Eosinophil# 0.15 X10^3/uL; Eosinophils% 2.7 % (0-5); Hematocrit 37.1 % (37-47); Hemoglobin 12.9 g/dL (12.0-15.0); Lymphocyte # 2.26 X10^3/ul (4.0); Lymphocyte % 40.3 % (19-41); Mean Corp Hgb Conc 34.8 g/dL (32-36); Mean Corpuscular Hgb 29.3 pg (27.0-32.0); Mean Corpuscular Volume 84.3 fL (81-99); Mean Platelet Vol. 9.5 fl (6.2-12.0); Monocyte% 8.9 % (0-10); NRBC Flagged by Analyzer 0 % (0-5); Neutrophil # 2.66 X10^3/uL (2.7-7.7); Neutrophil % 47.4 % (47-70); Platelet Count 227 K/mm3 (150-450); RBC Distribution Width CV 11.4 % (11.6-14.6); RBC Distribution Width SD 35.1 fl (35.1-43.9); White Blood Count 5.6 K/mm3 (4.4-11.0)
[2020-10-03 09:24] LABS: HIV - WCH Non-Reactive (Nonreactive); Hepatitis B Surface Antigen Non-Reactive (Nonreactive); Rubella IgG Reactive (Nonreactive)
[2020-10-03 10:04] LABS: Hepatitis C Antibody REACTIVE (Nonreactive)
[2020-10-06 02:34] LABS: Prenatal RPR NONREACTIVE (NONREACTIVE)
== END ==
PROVIDERS: Visit Provider Obstetrics & Gynecology
DX: Z34.81 Encounter for supervision of other normal pregnancy, first trimester (principal)
CPT/HCPCS: 36415; 85025; 86703; 86762; 86803; 87086; 87088; 87340

== ENCOUNTER 2020-12-01 16:08 | Emergency (ER) | payer MEDICAID, SELFPAY ==
[2020-12-01 16:10] VITALS: BP 99/69; PULSE 79; RESP 18; TEMP 36.4; O2SAT 100; BMI 21.1
--- NOTE | 2020-12-01 16:34 | ED.DCSUM_ITS ---
- ER Visit Summary Date of Service: 12/01/20 Chief Complaint: Pelvic pain and right flank pain History of Present Illness: The patient is a 30 F who presents with pelvic pain and right flank pain that began today. Patient states she was having difficulty urinating this morning and went to [facility]. Patient was seen there and had a Ward catheter placed. Patient states that they did some tests and discharged me with a catheter. Patient states that since she went home the catheter does not seem to be draining and she is urinating around the catheter. Patient denies any dysuria or hematuria. Patient states she is approximately 15 weeks . Patient admits to nausea which is chronic during her . Patient denies any vomiting. Patient admits to pressure in the suprapubic and right flank area. Patient states nothing makes it better or worse. Patient denies any fevers or chills. Physical Examination: Vital signs are stable. Patient is afebrile. Patient is in no acute distress. Oral mucosa is pink and moist. Neck is supple. Trachea is midline. There is no JVD. Heart was regular rate and rhythm. Lungs are clear and equal bilateral. Abdomen is soft. Bowel sounds are normal. There is tenderness over the suprapubic area. There is no rebound or guarding noted. There is also right CVA tenderness. Cranial nerves II through XII are intact. There are no focal motor or sensory deficits noted. Test Results: Urinalysis shows leukocyte esterase of 100 with positive nitrates. Occult blood was 250. There are 50-100 red blood cells and 10-25 epithelial cells. There were 5-10 white blood cells. Emergency Department Course and Treatment: The Ward catheter was removed. Patient did not want a new Ward catheter placed at this time. Prior records from her visit at [facility] today were reviewed. Patient had a pelvic ultrasound which showed intrauterine at 15 weeks 6 days. Patient also had renal ultrasound which showed right hydronephrosis and proximal hydroureter. Distal ureteral obstruction cannot be excluded. Labs were essentially within normal limits. Patient was given a dose of Keflex for possible urinary tract infection as the patient had few bacteria and 25-50 red blood cells. Patient was advised of her findings. Patient was advised that there could be a right distal ureteral calculus causing her pain. However, I do not feel the risk of radiation exposure is worth obtaining a CT scan of her abdomen pelvis to diagnose a distal ureteral calculus. Patient was instructed to continue her Keflex as prescribed. Since she is and she is on Suboxone, I am reluctant to prescribe opiate pain medication for her. Patient was instructed to continue taking Tylenol and ibuprofen as needed for pain. Patient was instructed to follow-up with urology as scheduled. Patient understood and was agreeable with the plan. All questions were answered. Disposition: Discharge home Impression: 1. Pelvic pain 2. Possible right distal ureteral calculus 3. Intrauterine This note was generated with Zinc software dictation software. It may contain incorrect words, spelling, and punctuation that were not noted in review of the chart prior to signing ED Disposition - Plan for ED Patient: Disposition: Home or Assisted Living Diagnosis: Right flank pain, Hematuria, Instructions: ED Flank Pain, Uncertain Cause, ED Hematuria, ED Es tablished Normal ... Referrals: Wander Maxwell MD [Primary Care Provider] - 3-5 Days Additional Instructions: Follow-up with the urologist that you were referred to from [facility]. Return if any further urinary retention.
--- NOTE | 2020-12-01 17:26 | ED.RN ---
Patient is aware we will not be able to give more pain meds and will be giving another RUSHING. She states she does not want it and would like to try and void in the bathroom first.
--- NOTE | 2020-12-01 17:36 | ED.RN ---
Patient able to void approx 150ml urine and post void scan shows 300ml urine in bladder but patient is 14-15 weeks so hard to differentiate between amniotic fluid vs urine for definitive numbers. She states she will take tylenol or advil for pain med and would like to not have the lyons unless it is necessary. Will alert Dr Muñoz.
[2020-12-01 17:40] LABS: Mucous, Urine 0 SEEN /hpf (<or=2+)
[2020-12-01 17:42] LABS: Color, Urine Amber (Yellow); Glucose, Dipstick Normal (Normal); Ketone-Dipstick Negative (Negative); Leukocyte Esterase-Dipstick 100 /ul (Negative); Nitrite-Dipstick Positive (Negative); Occult Blood-Urine 250 /ul (Negative); Protein-Dipstick 30 mg/dl (Negative); Urine Clarity Sl. Cloudy (Clear); Urine Urobilinogen 12 mg/dl (Normal)
[2020-12-01] MEDS: Acetaminophen 500 MG Tablet 1000 MG PO (17:42)
[2020-12-01 17:44] VITALS: BP 109/78; PULSE 72; RESP 17; O2SAT 99
[2020-12-01 17:44] LABS: Urine Bilirubin Dipstick 6 mg/dL (Negative)
--- NOTE | 2020-12-01 17:49 | ED.RN ---
Patient states she had an ultrasound at [place] that showed she may have a kidney stone and the urine lab they checked was negative but because of her sx, the cath and the possible stone, they gave her atb. She states she did not pick it up yet and does not know what it was and that is why she did not mention it when reconciling meds. States she will take the tylenol and try to pee while here and is aware if she decides to not get the cath, she can come back here if experiences troubles voiding again. Patient is agreeable and went to bathroom to try and void again.
[2020-12-01 18:01] LABS: Squamous Epithelial Cells - UA 10-25 SEEN /hpf (5-10)
[2020-12-01 18:02] LABS: Bacteria RARE /hpf (None Seen); Red Blood Cells-Urine 50-100 SEEN /hpf (0-5); White Blood Cells 5-10 SEEN /hpf (0-5)
[2020-12-01 18:36] VITALS: RESP 16
== END 2020-12-01 18:39 | disposition home or self-care (01) ==
PROVIDERS: Emergency Provider Emergency Medicine; PCP Family Medicine
DX: O26.892 Other specified pregnancy related conditions, second trimester (principal); R10.2 Pelvic and perineal pain; Z3A.15 15 weeks gestation of pregnancy
CPT/HCPCS: 81001; 99283

== ENCOUNTER → 2021-03-24 15:48 | Outpatient (CLI) | payer MEDICAID, SELFPAY ==
[2021-03-24 16:49] LABS: Hematocrit 28.6 % (37-47); Mean Corp Hgb Conc 31.5 g/dL (32-36); Mean Corpuscular Hgb 27.1 pg (27.0-32.0); Mean Corpuscular Volume 86.1 fL (81-99); Platelet Count 191 K/mm3 (150-450); RBC Distribution Width CV 11.8 % (11.6-14.6); RBC Distribution Width SD 36.9 fl (35.1-43.9); Red Blood Count 3.32 M/mm3 (4.2-5.4); White Blood Count 7.6 K/mm3 (4.4-11.0)
[2021-03-27 16:07] LABS: HCV Quant. RNA PCR HCV Not Detected IU/mL (.)
== END ==
PROVIDERS: PCP Family Medicine; Visit Provider Obstetrics & Gynecology
DX: O98.413 Viral hepatitis complicating pregnancy, third trimester (principal); B19.20 Unspecified viral hepatitis C without hepatic coma; Z3A.00 Weeks of gestation of pregnancy not specified
CPT/HCPCS: 36415; 85027; 87522

== ENCOUNTER → 2021-05-02 17:25 | Outpatient (CLI) | payer MEDICAID, SELFPAY | PROVIDERS: PCP Family Medicine; Visit Provider Obstetrics & Gynecology | DX: Z36.85 Encounter for antenatal screening for Streptococcus B (principal) | CPT/HCPCS: 87081 ==

== ENCOUNTER 2021-05-17 21:30 | Outpatient (CLI) | payer MEDICAID, SELFPAY ==
[2021-05-17 21:33] VITALS: BMI 24.3
[2021-05-17 21:42] VITALS: BP 110/63; PULSE 83; TEMP 36.6; O2SAT 99
--- NOTE | 2021-05-17 23:53 | OB.TRI.NOTE ---
HPI - General HPI Narrative GALILEO KRAFT, is a 31 F at 39 wga who presents with c/o contractions ARVIND 05/24/21 PFSH PFSH Medical History (Updated 05/23/21 @ 08:[address] Iwona Kee MD) Hepatitis Placental abnormality depression Home Medications buprenorphine-naloxone 1 ea SL DAILY 11/26/19 [History Last Taken 05/18/21 08:00] ondansetron HCl 4 mg PO Q8H PRN PRN 11/26/19 [History Last Taken 05/18/21 08:00] vit,[id number] 1 tab PO DAILY 12/01/19 [History Last Taken 05/18/21 08:00] Allergy/AdvReac Type Severity Reaction Status Date / Time No Known Allergies Allergy Verified 05/19/21 03:15 Surgical History (Updated 05/19/21 @ 03:13 by Minerva Puga) H/O eye surgery Hx of wisdom tooth extraction Social History Smoking Status: Light Smoker (<10/day) History Elective abortions Hx Para 2 Spontaneous abortions Hx # Term Pregnancies Ectopic pregnancies Hx # Pregnancies Multiple births # of living children NST FHR Rate Baby A Baseline: 120 Variability:: Moderate Accelerations:: 15 x 15 Decelerations:: None NST Reactive:: Appropriate for gestational age FHR Category:: Category I Uterine Activity:: 02/04 Assessment & Plan (1) 39 weeks gestation of : COMMENT: SCOUT /-2 per RN exam x 2 PLAN: Dx False labor D/c home
== END 2021-05-17 22:59 | disposition home or self-care (01) ==
LOC: WPOUT 21:31 → OBT 21:31
PROVIDERS: PCP Family Medicine; Visit Provider Obstetrics & Gynecology
DX: O47.1 False labor at or after 37 completed weeks of gestation (principal); Z3A.39 39 weeks gestation of pregnancy; O99.333 Smoking (tobacco) complicating pregnancy, third trimester; F17.200 Nicotine dependence, unspecified, uncomplicated
CPT/HCPCS: 59025; 59050; 99218; G0378

== ENCOUNTER 2021-05-19 01:20 | Inpatient (IN) | payer MEDICAID, SELFPAY ==
[2021-05-19] VITALS (64 sets, daily range): BP systolic 79–141; BP diastolic 46–74; PULSE 50–110; RESP 17–18; TEMP 36.4–37.6; O2SAT 81–100; BMI 23.9
[2021-05-19] MEDS: Lactated Ringers 1,000 ML 200 ML IV ×2 (01:40→08:04)
[2021-05-19] MEDS: Lactated Ringers 500 ML 999 ML IV ×2 (01:41→03:53)
[2021-05-19 01:50] LABS: Absolute Lymphocyte Count 2.05 X10^3/uL (0.83-4.51); Basophil# 0.02 X10^3/uL; Basophil% 0.3 % (0-1); Eosinophil# 0.16 X10^3/uL; Eosinophils% 2.4 % (0-5); Hematocrit 29.8 % (37-47); Hemoglobin 9.2 g/dL (12.0-15.0); Lymphocyte # 2.05 X10^3/ul (0.83-4.51); Lymphocyte % 30.2 % (19-41); Mean Corp Hgb Conc 30.9 g/dL (32-36); Mean Corpuscular Hgb 24.9 pg (27.0-32.0); Mean Corpuscular Volume 80.5 fL (81-99); Mean Platelet Vol. 8.8 fl (6.2-12.0); Monocyte# 0.58 X10^3/uL; Monocyte% 8.5 % (0-10); NRBC Flagged by Analyzer 0 % (0-5); Neutrophil # 3.95 X10^3/uL (2.7-7.7); Neutrophil % 58.2 % (47-70); Platelet Count 155 K/mm3 (150-450); RBC Distribution Width CV 14.9 % (11.6-14.6); RBC Distribution Width SD 43.5 fl (35.1-43.9); White Blood Count 6.8 K/mm3 (4.4-11.0)
[2021-05-19] MEDS: fentaNYL-bupivacaine (epidural) 100 ML BAG EPIDURAL ×2 (02:57→08:03)
--- NOTE | 2021-05-19 07:16 | PCM.HP.BLA ---
History and Physical Date of Admission: 05/19/21 Chief complaint: Contractions History of present illness: 31-year-old G4, P2 at 39 weeks and 2 days with ARVIND: 05/24/2021 by 6-week ultrasound arrives with contractions. Denies headache, vision changes, chest pain, shortness of breath, nausea vomiting, visual changes. Patient states good movement. 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, denies alcohol use Family history: Denies history DVT or PE Review of systems: Besides above pertinent positives a full review of systems was performed and found to be negative Physical exam: Blood pressure 106/62 pulse 84 General: Normal-appearing no acute distress HEENT: Normocephalic atraumatic no cervical lymphadenopathy Cardiac/respiratory: No use of accessory muscles, nonlabored breathing Abdomen: Soft, nontender, gravid Extremities: No peripheral edema normal peripheral pulses Psych: Normal affect normal demeanor nonpressured speech Labs: White blood cell count 6.8, hemoglobin 9.2 hematocrit 29.8, platelets 155. Blood type a positive antibody negative Assessment and plan: 31-year-old G4, P2 at 39 weeks and 2 days in labor Admit labor and delivery CEFM GBS negative Hepatitis C history of heroin abuse: Recent viral load for hepatitis C undetectable. We will continue precautions Routine orders Anesthesia to see
--- NOTE | 2021-05-19 07:40 | PN.OBGYN_ITS ---
Subjective Subjective Patient comfortable with epidural Objective Data Objective Data Vital Signs: Vital Signs Temp Pulse BP Pulse Ox 99.6 F H 101 H 106/62 97 05/19/21 07:12 05/19/21 07:12 05/19/21 07:12 05/19/21 07:12 Weight: 139 lb 9.6 oz Body Mass Index (BMI) 23.9 Intake & Output: Intake and Output for Last 24 Hours 05/17/21 05/18/21 05/19/21 23:59 23:59 23:59 Intake Total 1340.00 / 1340.00 Balance 1340.00 / 1340.00 Lab / Micro Data Result Diagrams: 05/19/21 01:40 Labs: Laboratory Results - last 24 hr 05/19/21 01:40: WBC 6.8, RBC 3.70 L, Hgb 9.2 L, Hct 29.8 L, MCV 80.5 L, MCH 24.9 L, MCHC 30.9 L, RDW Std Deviation 43.5, RDW Coeff of Gabby 14.9 H, Plt Count 155, MPV 8.8, Immature Gran % (Auto) 0.400, Neut % (Auto) 58.2, Lymph % (Auto) 30.2, Fountain % (Auto) 8.5, Eos % (Auto) 2.4, Baso % (Auto) 0.3, Absolute Neuts (auto) 4.0, Absolute Lymphs (auto) 2.05, Nucleated RBC % 0 05/19/21 01:40: Blood Type A POSITIVE, Antibody Screen NEGATIVE Micro: Microbiology 05/19/21 03:21 Mucosa - Nose SARS-CoV-2 Antigen (Rapid) - Final Physical Exam Const alert, oriented x3, no apparent distress, average body habitus, healthy appearing and well nourished HEENT normocephalic and moist oral mucous membranes Head and Scalp: atraumatic Neck full ROM Resp normal respiratory effort, no retractions and no use of accessory muscles Narrative: Cervical exam /-3. AROM clear fluid Psych mental status grossly normal, affect normal, speech normal and activity/motor behavior normal Assessment & Plan (1) : PLAN: Patient seen and examined. 7 cm AROM for clear fluid. We will continue expectant management. No FSE with hepatitis C.
[2021-05-19] MEDS: Oxytocin 30 units/NS 500 ml 30 UNITS/500 ML IV.SOLN IV (08:13)
[2021-05-19] MEDS: Oxytocin 30 units/NS 500 ml 30 UNITS/500 ML IV.SOLN 334 UNITS IV (12:45)
--- NOTE | 2021-05-19 12:51 | EX.PCM.OBRPT ---
Vaginal Delivery Findings Description of Procedure: Normal spontaneous vaginal delivery of a viable male , vertex ENRIQUETA. Head and shoulders delivered with ease. Cord cut and clamped. Baby handed off to mom. Placenta delivered via cord traction and fundal massage. No lacerations were noted. EBL 300 cc Apgars 9/9
[2021-05-19] MEDS: BUPRENORPHINE HCL/NALOXONE HCL 1 EACH FILM SL (14:15)
[2021-05-19] MEDS: Ibuprofen 600 MG Tablet PO ×2 (15:24→22:18)
[2021-05-19] MEDS: Acetaminophen 500 MG Tablet 1000 MG PO (18:23)
[2021-05-19] MEDS: Senna/Docusate Sodium 1 Tablet PO (18:24)
[2021-05-20 04:05] VITALS: BP 106/45; PULSE 80; RESP 18; TEMP 36.6
[2021-05-20] MEDS: Ibuprofen 600 MG Tablet PO ×3 (07:56→23:54)
[2021-05-20 07:58] VITALS: BP 101/70; PULSE 88; RESP 16; TEMP 36.2; O2SAT 99
[2021-05-20] MEDS: BUPRENORPHINE HCL/NALOXONE HCL 1 EACH FILM SL (09:43)
--- NOTE | 2021-05-20 11:15 | PCM.DC ---
Discharge Instructions Diet Discharge Diet: No restrictions Activity Discharge Activity: Return to Normal Activity, May Drive and May Shower May resume sexual activity in: 4-6 weeks Weight Bearing Status: Weight bearing as tolerated Dressing / Incision Call your doctor if your incision/area has: Continuous Slow Oozing and Foul Smelling Discharge Call your doctor if you observe: Fever of 101 or Higher, Shortness of breath and Chest pain Follow Up Care Please Follow Up With: Jose Gutierrez MD When: 2-week telehealth visit, 4 to 6-week visit Test Results: Test results from this visit will be discussed in further detail at your follow-up appointment, if applicable. Discharge Plan Admission Admit Date/Time: 05/19/21 01:20 Attending Provider: Jose Gutierrez Primary Care Provider: Wander Maxwell Discharge Orders/Prescriptions Prescriptions: No Action buprenorphine-naloxone 1 EACH film 1 ea SL DAILY RF: 0 ondansetron HCl 4 MG tablet 4 mg PO Q8H PRN PRN (Reason: Nausea) RF: 0 vit,[id number] 1 TABLET tablet 1 tab PO DAILY RF: 0
--- NOTE | 2021-05-20 11:16 | PN.OBGYN_ITS ---
Subjective Subjective No overnight complaints. Pain well controlled. Objective Data Objective Data Vital Signs: Vital Signs Temp Pulse Resp BP Pulse Ox 97.1 F L 88 16 101/70 99 05/20/21 07:58 05/20/21 07:58 05/20/21 07:58 05/20/21 07:58 05/20/21 07:58 Oxygen Delivery Method Room Air Weight: 139 lb 9.6 oz Body Mass Index (BMI) 23.9 Intake & Output: Intake and Output for Last 24 Hours 05/18/21 05/19/21 05/20/21 23:59 23:59 23:59 Intake Total 3455.64 / 3455.64 Output Total 1900 / 1900 Balance 1555.64 / 1555.64 Lab / Micro Data Result Diagrams: 05/19/21 01:40 Micro: Microbiology 05/19/21 03:21 Mucosa - Nose SARS-CoV-2 Antigen (Rapid) - Final Physical Exam Const alert, oriented x3, no apparent distress, average body habitus, healthy appearing and well nourished HEENT normocephalic and moist oral mucous membranes Head and Scalp: atraumatic Neck full ROM Resp normal respiratory effort, no retractions and no use of accessory muscles GI normal to inspection, nondistended, normoactive bowel sounds Extremity normal to inspection, full ROM and no clubbing, cyanosis or edema Psych mental status grossly normal, affect normal, speech normal and activity/motor behavior normal Assessment & Plan (1) : PLAN: day 1. No overnight complaints. Pain well controlled. Hepatitis C positive, undetectable viral load. To follow-up . Suboxone use will continue , Tylenol and ibuprofen for pain. Okay to discharge home today if okay with professional application designer
--- NOTE | 2021-05-20 11:18 | CASEMGMT ---
SW Note Referral Reason: Use of suboxone, past heroin use, history of Post depression Mother: Rosa Elena Carrera G4 P now 3 PNC: Dr. Jose Gutierrez Control: Tubual Baby: Josse Zimmerman : 05/19/21 Apgars 9/9 Weight 7 lbs 14 ounces Pediatrican: Dr. Preciado Breast Feeding. Patient reports that the breast feeding is going good and the baby is latching well. Mother's other children: Desirae (female) 17 months Lino (male) 10 years old Home: Patient and the FOB and children reside in a home in [place] Transportation: Per charting patient reports that they have access to car. FOB and patient both have drivers license and are able to drive. Patient and FOB have 1 car however their 2nd car is being fixed next month so they will have access to it. Supplies:: Patient reports that they have all supplies including bassinet, car seat, clothes and diapers. Supports: Patient reports that she and the fob come from a big family .. that are 100% supportive. Patient's family is from the [place] and FOB's family is from [place]. Education Level: Patient completed the 11th grade but did not graduate. Patient reports no learning issues or delays Employment: Patient is not employed outside the home. Agency Involvement: Patient reports she receives food stamps and medicaid for her children (Patient has [place]). Patient reports if she has to formula feed she will enroll on WIC. SW offered referral or application and patient declined noting that she is familiar with WIC application process. No other involvement with [facility], Counseling, Legal or [facility]. FOB: Rakan Fan Time Together: 12 years FOB was involved with the and holding the and bonding with the while this song writer was in the room. FOB works doing [employer]. He said that he will be home with the and patient as long as she needs me.. she's the boss. FOB has no other children besides the 3 children with patient. FOB reports no mental health, AOD or domestic Violence. Patient reports that she had a little bit of post following the of her daughter. Patient said that she feels that it was related to having to stay in the hospital longer with her baby. Patient said that while in the hospital with her daughter she would cry out of nowhere.. but when I got home I was fine. Patient reports no history of psych hospitalizations or medication. Patient reports she has been clean from heroin for 5 years. She went to rehab in [facility] for treatment. Patient said I got in trouble so I went. Patient said that she is very proud of being clean. Patient is currently linked with [facility] in [place] for Suboxone treatment. Patient denied use of alcohol and drugs. (Of note patient's chart noted that patient used CBD gummies for nausea during the ) Patient reports no discharge concerns or issues. SW educated patient on Shaken Baby Syndrome, Post Depression and Safe Sleeping SW provided patient with resources on safe sleeping, counseling agencies, on line resources for post , 10 facts about depression and anxiety, Depression support from Post Warm line, [facility] [place] resources and Help me grow information. No further issues or concerns. Patient was very reactive when talking about the and appeared to be appropriately bonding with the . Plan: Home with . Yumiko COOK
[2021-05-20 11:40] VITALS: BP 95/52; PULSE 71; RESP 16; TEMP 36.4; O2SAT 97
[2021-05-20 17:05] VITALS: BP 102/61; PULSE 84; RESP 16; TEMP 36.3; O2SAT 96
[2021-05-20 20:45] VITALS: BP 97/67; PULSE 82; RESP 16; TEMP 36.3; O2SAT 97
[2021-05-20] MEDS: Acetaminophen 500 MG Tablet 1000 MG PO (21:06)
[2021-05-21 03:06] VITALS: BP 99/66; PULSE 74; RESP 16; TEMP 36.3; O2SAT 98
[2021-05-21] MEDS: Acetaminophen 500 MG Tablet 1000 MG PO ×2 (03:14→11:08)
--- NOTE | 2021-05-21 07:48 | DS.PCM_ITS ---
Discharge Summary Date of Admission: 05/19/21 Date of Discharge: 05/21/21 Summary: Patient arrived with contractions on 05/19/2021 found to be in labor. Spontaneous vaginal delivery on 05/19/2021. Normal recovery. Patient with a history of hepatitis C and currently on Suboxone, correction officer penitentiary to watch baby for 5 days. Patient discharged 05/21/2021 Physical Exam Const alert, oriented x3, no apparent distress and no limitations Neck full ROM Resp normal respiratory effort, normal air movement and no retractions GI normal to inspection, nondistended, normoactive bowel sounds Extremity normal to inspection, full ROM and normal capillary refill Skin no rashes or lesions noted Psych mental status grossly normal, thought process normal, cooperative, affect normal and speech normal Meaningful Use Info Meaningful Use Diagnoses (Choose all that apply): None applicable Discharge Plan Admission Admit Date/Time: 05/19/21 01:20 Primary Reason for Your Visit: Labor Attending Provider: Jose Gutierrez Primary Care Provider: Wander Maxwell Instructions Additional Instructions / Restrictions: May resume normal activity. Okay to shower. Okay to drive. No intercourse for 4 to 6 weeks. Weightbearing as tolerated. Call physician if fevers of 101, chest pain, shortness of breath, increased bleeding. Follow-up with Dr. Jose Gutierrez 2-week telehealth visit, 4 to 6-week visit. Discharge Orders/Prescriptions Prescriptions: No Action buprenorphine-naloxone 1 EACH film 1 ea SL DAILY RF: 0 ondansetron HCl 4 MG tablet 4 mg PO Q8H PRN PRN (Reason: Nausea) RF: 0 [id number] 1 TABLET tablet 1 tab PO DAILY RF: 0 Referrals / Follow Up: Wander Maxwell MD [Primary Care Provider] - Disposition Disposition (needs filled in before D/C Order can be placed): Home, Self Care
--- NOTE | 2021-05-21 07:51 | PCM.PN.OB ---
Subjective Subjective No overnight complaints. Pain well controlled. Objective Data Objective Data Vital Signs: Vital Signs Temp Pulse Resp BP Pulse Ox 97.4 F L 74 16 99/66 98 05/21/21 03:06 05/21/21 03:06 05/21/21 03:06 05/21/21 03:06 05/21/21 03:06 Oxygen Delivery Method Room Air Weight: 139 lb 9.6 oz Body Mass Index (BMI) 23.9 Intake & Output: Intake and Output for Last 24 Hours 05/19/21 05/20/21 05/21/21 23:59 23:59 23:59 Intake Total 3455.64 / 3455.64 Output Total 1900 / 1900 Balance 1555.64 / 1555.64 Lab / Micro Data Result Diagrams: 05/19/21 01:40 Micro: Microbiology 05/19/21 03:21 Mucosa - Nose SARS-CoV-2 Antigen (Rapid) - Final Physical Exam Const alert, oriented x3 and average body habitus HEENT normocephalic and moist oral mucous membranes Head and Scalp: atraumatic Neck full ROM Resp normal respiratory effort, no retractions and no use of accessory muscles GI normal to inspection, nondistended, normoactive bowel sounds Extremity normal to inspection, full ROM and no clubbing, cyanosis or edema Psych mental status grossly normal, affect normal, speech normal and activity/motor behavior normal Assessment & Plan (1) : PLAN: day 2. Pain well controlled. Breast-feeding. Hepatitis C, patient on Suboxone. Nuclear Medicine Officer to watch baby for 5 days . Patient to discharge to hot status today.
[2021-05-21 09:01] VITALS: BP 95/54; PULSE 67; RESP 16; TEMP 36.3; O2SAT 95
[2021-05-21] MEDS: BUPRENORPHINE HCL/NALOXONE HCL 1 EACH FILM SL (11:08)
[2021-05-21 13:19] VITALS: BP 97/56; PULSE 73; RESP 18; TEMP 36.3
[2021-05-21] MEDS: Ibuprofen 600 MG Tablet PO (13:23)
== END 2021-05-21 14:24 | disposition home or self-care (01) | DRG 560 ==
LOC: WPOUT 01:25 → WP 01:25
PROVIDERS: Admitting Provider Obstetrics & Gynecology; PCP Family Medicine; Visit Provider Obstetrics & Gynecology
DX: O98.42 Viral hepatitis complicating childbirth (principal); B19.20 Unspecified viral hepatitis C without hepatic coma; O99.334 Smoking (tobacco) complicating childbirth; Z20.822 Contact with and (suspected) exposure to COVID-19; F17.210 Nicotine dependence, cigarettes, uncomplicated; F11.11 Opioid abuse, in remission; Z79.899 Other long term (current) drug therapy; Z3A.39 39 weeks gestation of pregnancy; Z37.0 Single live birth
CPT/HCPCS: 59025; 59050; 85025; 86850; 86900; 86901; 87426; 99218; J7120; G0378

== ENCOUNTER → 2022-07-20 | Outpatient (CLI) | payer MEDICAID, SELFPAY ==
[2022-07-20 15:51] LABS: Absolute Lymphocyte Count 2.31 X10^3/uL (0.83-4.51); Absolute Neutrophil Count 3.6 X10^3/uL (2.0-7.7); Basophil# 0.03 X10^3/uL; Basophil% 0.4 % (0-1); Eosinophils% 4.3 % (0-5); Hematocrit 37.9 % (37-47); Hemoglobin 13.1 g/dL (12.0-15.0); Lymphocyte # 2.31 X10^3/ul (0.83-4.51); Lymphocyte % 33.4 % (19-41); Mean Corp Hgb Conc 34.6 g/dL (32-36); Mean Corpuscular Volume 86.7 fL (81-99); Mean Platelet Vol. 9.2 fl (6.2-12.0); Monocyte# 0.63 X10^3/uL; Monocyte% 9.1 % (0-10); NRBC Flagged by Analyzer 0 % (0-5); Neutrophil # 3.61 X10^3/uL (2.7-7.7); Neutrophil % 52.4 % (47-70); Platelet Count 236 K/mm3 (150-450); RBC Distribution Width CV 11.1 % (11.6-14.6); RBC Distribution Width SD 35.4 fl (35.1-43.9); Red Blood Count 4.37 M/mm3 (4.2-5.4); White Blood Count 6.9 K/mm3 (4.4-11.0)
[2022-07-20 16:01] LABS: hCG Titer Quant., Serum < 1 mIU/mL (1-3)
[2022-07-20 16:07] LABS: Estradiol 50.3 pg/mL; Follicle Stimulating Hormone 6.3 mIU/mL; T4 Free Direct 0.88 ng/dL (0.76-1.46); Thyroid Stim Hormone (TSH) 9.34 uIU/mL (0.358-3.74)
== END | disposition home or self-care (01) ==
LOC: WOBLAB 14:39
PROVIDERS: PCP Family Medicine; Visit Provider Obstetrics & Gynecology
DX: N93.9 Abnormal uterine and vaginal bleeding, unspecified (principal)
CPT/HCPCS: 36415; 82670; 83001; 83002; 84439; 84443; 84702; 85025